=== PATIENT | male | born 1955 | race Caucasian/White ===

== ENCOUNTER 2018-05-30 23:14 | Inpatient (IN) | payer OTHER, MEDICARE ==
[~2018-05-30] VITALS: Ht 182.9 cm; Wt 84.4 kg
[2018-05-31] MEDS ORDERED: PREG50CA PO (00:07)
[2018-05-31] MEDS ORDERED: VITA1TAB27 PO (00:07)
[2018-05-31] MEDS ORDERED: BISA10SU8 RC (00:07)
[2018-05-31] MEDS ORDERED: AMYL1CAP58 PO (00:07)
[2018-05-31] MEDS ORDERED: CYCL5TAB PO (00:07)
[2018-05-31] MEDS ORDERED: FENO134C PO (00:07)
[2018-05-31] MEDS ORDERED: GLUC1KIT IJ (00:07)
[2018-05-31] MEDS ORDERED: FOLI1TAB16 PO (00:07)
[2018-05-31] MEDS ORDERED: LORA2VIA6 IV (00:07)
[2018-05-31] MEDS ORDERED: ALPR1TAB7 PO (00:07)
[2018-05-31] MEDS ORDERED: AMLO5TAB2 PO (00:07)
[2018-05-31] MEDS ORDERED: MULT-213 PO (00:07)
[2018-05-31] MEDS ORDERED: TIOT18CA4 IH (00:07)
[2018-05-31] MEDS ORDERED: BUPR1FIL5 SL (00:07)
[2018-05-31] MEDS ORDERED: HYDR2VIA3 IV (00:07)
[2018-05-31] MEDS ORDERED: PANT40VI IV (00:07)
[2018-05-31] MEDS ORDERED: HEPA500014 IJ (00:07)
[2018-05-31] MEDS ORDERED: LEVO150T8 PO (00:07)
[2018-05-31] MEDS ORDERED: OMEG100037 PO (00:07)
[2018-05-31] MEDS ORDERED: FLUT1DIS29 IH (00:07)
[2018-05-31] MEDS ORDERED: INSU100C SQ ×2 (00:07)
[2018-05-31] MEDS ORDERED: THIA100V2 IJ (00:07)
[2018-05-31] MEDS ORDERED: DEXT38GE12 PO (00:07)
[2018-05-31] MEDS ORDERED: CLON1PAT TD (00:07)
[2018-05-31] MEDS ORDERED: ACET325T53 PO (00:07)
[2018-05-31] MEDS ORDERED: LIOTHYRONINE PO (00:07)
[2018-05-31] MEDS ORDERED: LIDO30AD10 TD (00:07)
[2018-05-31] MEDS ORDERED: DIVA250T4 PO (00:07)
[2018-05-31] MEDS ORDERED: ONDA8TAB9 PO (00:07)
[2018-05-31] MEDS ORDERED: LABE25SY IV (00:07)
[2018-05-31] MEDS ORDERED: TEMA30CA5 PO (00:07)
[2018-05-31] MEDS ORDERED: BUPR200T2 PO (00:07)
[2018-05-31] MEDS ORDERED: ALLO100T PO (00:07)
[2018-05-31] MEDS ORDERED: LEVE500T9 PO (00:07)
[2018-05-31] MEDS ORDERED: HYDR-4209 PO (00:07)
[2018-05-31] MEDS ORDERED: DIGO125T PO (00:07)
[2018-05-31] MEDS ORDERED: ALBU8.5H8 IH (00:07)
[2018-05-31] MEDS ORDERED: HALO5AMP2 IJ (00:07)
[2018-05-31] MEDS ORDERED: DESV100T PO (00:07)
[2018-05-31] MEDS ORDERED: FLUD0.1T PO (00:07)
[2018-05-31] MEDS ORDERED: AMOX-427 PO (00:07)
[2018-05-31] MEDS ORDERED: HYDR20VI4 IV (00:07)
[2018-05-31 00:37] LABS: *BILIRUBIN,URIN NEGATIVE (NEGATIVE); *BLOOD, URINE NEGATIVE (NEGATIVE); *CLARITY,URINE CLEAR (CLEAR); *COLOR,URINE YELLOW (YELLOW); *KETONES,URINE NEGATIVE (NEGATIVE); *PROTEIN,URINE NEGATIVE (NEGATIVE); *UROBILINOGEN,URINE 0.2 E.U./dl (NORMAL); LEUKOCYTE ESTERASE ,URINE NEGATIVE (NEGATIVE); NITRITE, URINE NEGATIVE (NEGATIVE); PH,URINE 6.5 (5.0-8.0); UGLUCOSE NEGATIVE (NEGATIVE)
[2018-05-31 00:52] LABS: BACTERIA,URINE NONE SEEN /HPF (NONE SEEN); RBC,URINE 0-3 /HPF (0-3); SQUAMOUS EPITHELIAL CELL,UR FEW /HPF (NONE SEEN); WBC,URINE 0-3 /HPF (0-3)
--- NOTE | 2018-05-31 01:33 | NUR ---
APt. admitted to [facility] , under care of Dr. Carvalho/Dexter Mc. Belongs List completed. MRSA swab done. Report given to Wendi LUI.
[2018-05-31] MEDS ORDERED: LORAZEPAM 2 MG/1 ML VIAL ONE (01:56)
[2018-05-31] MEDS ORDERED: LORAZEPAM 2 MG/1 ML VIAL IM ONE (02:00)
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
[2018-05-31 02:46] VITALS: BP 142/87
[2018-05-31] MEDS ORDERED: MAGNESIUM HYDROXIDE 30 ML LIQUID UDC PO PRN (03:30)
[2018-05-31] MEDS ORDERED: ACETAMINOPHEN 325 MG TABLET PO PRN (03:30)
[2018-05-31] MEDS ORDERED: MAG HYDROX/AL HYDROX/SIMETH 30 ML LIQUID UDC PO PRN (03:30)
[2018-05-31 07:30] VITALS: BP 130/80
[2018-05-31] MEDS: NICOTINE 14 MG/24HR PATCH TD SCH (09:44)
[2018-05-31] MEDS: LORAZEPAM 1 MG TABLET PO PRN ×3 (09:49→21:40)
[2018-05-31] MEDS: LEVETIRACETAM 500 MG TABLET PO SCH ×2 (11:30→20:02)
[2018-05-31] MEDS ORDERED: ALBUTEROL SULFATE 8 GM HFA.AER.AD IH PRN (11:30)
[2018-05-31] MEDS ORDERED: BISACODYL 10 MG SUPP.RECT RC PRN (11:30)
[2018-05-31] MEDS ORDERED: Medication Not On Formulary EA (Cyclobenzaprine Hcl 10 MG) PO PRN (11:30)
[2018-05-31] MEDS ORDERED: ONDANSETRON 8 MG PO PRN (11:30)
[2018-05-31] MEDS ORDERED: LIDOCAINE 5% PATCH TD SCH (11:30)
[2018-05-31] MEDS: AMLODIPINE 5 MG TABLET PO SCH ×2 (11:30→13:10)
[2018-05-31] MEDS: LEVOTHYROXINE SODIUM 150 MCG TABLET PO SCH (11:30)
[2018-05-31] MEDS ORDERED: ALBUTEROL SULFATE 2.5 MG/3 ML NEBU NEB PRN (12:00)
[2018-05-31] MEDS ORDERED: ONDANSETRON ODT 4 MG TAB.RAPDIS SL PRN (12:15)
[2018-05-31] MEDS ORDERED: CYCLOBENZAPRINE HCL 10 MG TABLET PO PRN ×2 (12:15→13:00)
[2018-05-31] MEDS: HYDROCODONE/APAP 5-325MG TABLET PO PRN ×2 (12:53→20:03)
[2018-05-31] MEDS: ALLOPURINOL 100 MG TABLET PO SCH (13:09)
[2018-05-31] MEDS: FLUDROCORTISONE ACETATE 0.1 MG TABLET PO SCH (13:09)
[2018-05-31] MEDS ORDERED: CLONIDINE HCL 0.1 MG TABLET PO PRN (13:45)
[2018-05-31] MEDS ORDERED: FLUTICASONE/SALMETEROL 500/50 EACH DISK.W.DEV IH SCH (17:00)
[2018-05-31] MEDS ORDERED: Medication Not On Formulary EA (Omega-3/Dha/Epa/Fish Oil (Fish Oil 1,000 mg Softgel) 1,0 PO SCH (17:00)
[2018-05-31] MEDS ORDERED: Medication Not On Formulary EA (Amylase/Lipase/Protease (Creon Dr 24,000 Units Capsule) PO SCH (17:00)
[2018-05-31] MEDS: AMOXICILLIN-CLAVUL 500-125MG TABLET PO SCH (17:40)
[2018-05-31] MEDS: LIPASE/PROTEASE/AMYLASE 4200 UNITS CAPSULE.DR PO SCH (17:41)
[2018-05-31] MEDS: PREGABALIN 50 MG CAPSULE PO SCH (17:41)
[2018-05-31] MEDS: OMEGA-3 FATTY ACIDS/FISH OIL CAPSULE PO SCH (20:02)
[2018-05-31 20:22] VITALS: BP 117/60
[2018-05-31] MEDS: BACITRACIN/POLYMYXIN B OINT 15 GM TUBE TOP SCH (21:11)
[2018-05-31] MEDS ORDERED: TRAZODONE 50 MG TABLET PO SCH (21:45)
--- NOTE | 2018-05-31 22:00 | NUR ---
received to care, watching tv by self, but pleasant upon approach. PRN ativan was given at 2139, for anxiety. as of 2199, he remains awake, in bed. will continue to monitor closely.
--- NOTE | 2018-05-31 23:00 | NUR ---
trazadone started, and was given at this time, per MD orders.
--- NOTE | 2018-05-31 23:30 | NUR ---
appears to be asleep. no distress noted.
[2018-06-01] MEDS: PANTOPRAZOLE SODIUM 40 MG TABLET.DR PO SCH (06:18)
[2018-06-01] MEDS: LEVOTHYROXINE SODIUM 150 MCG TABLET PO SCH (06:18)
[2018-06-01] MEDS: LORAZEPAM 1 MG TABLET PO PRN ×2 (06:24→12:41)
--- NOTE | 2018-06-01 06:24 | NUR ---
pt is now awake. PRN ativan was given at this time, for anxiety. he also had a medication scheduled for this morning at 0700, CYTOMEL, but it was not available, even from the nursing word processing supervisor, so it will be passed on to the oncoming shift, to follow up.
[2018-06-01 07:13] LABS: BASOPHILS % (AUTO) 0.5 % (0.0-2.0); EOSINOPHILS # (AUTO) 0.9 K/uL (0.0-0.7); HEMATOCRIT 33.8 % (36.7-47.1); HEMOGLOBIN 11.4 g/dL (12.5-16.3); LYMPHOCYTES # (AUTO) 1.7 K/uL (20.0-40.0); MEAN CORPUSCULAR HGB CONC 34 g/dL (32.5-36.3); MEAN CORPUSCULAR VOLUME 94.9 fL (73.0-96.2); MONOCYTES # (AUTO) 0.6 K/uL (2.0-10.0); MONOCYTES % (AUTO) 7.5 % (0.0-11.0); NEUTROPHILS # (AUTO) 5.2 K/uL (1.8-8.9); PLATELET COUNT (AUTO) 153 K/uL (152-348); RED BLOOD CELL COUNT(AUTO) 3.56 MIL/uL (4.06-5.63); WHITE BLOOD COUNT (AUTO) 8.5 K/uL (3.6-10.2)
[2018-06-01 07:30] VITALS: BP 159/97
[2018-06-01 07:35] LABS: BILIRUBIN,TOTAL 0.2 mg/dL (0.2-1.0); CREATININE 1.7 mg/dL (0.6-1.3); MAGNESIUM 1.9 mg/dL (1.8-2.4); PHOSPHOROUS 3.4 mg/dL (2.5-4.9); TOTAL PROTEIN, SERUM 6.1 g/dL (6.4-8.2)
[2018-06-01 07:42] LABS: THYROID STIMULATING HORMONE 2.667 mIU/mL (0.358-3.740)
[2018-06-01] MEDS ORDERED: LIOTHYRONINE PO SCH (09:00)
[2018-06-01] MEDS ORDERED: Medication Not On Formulary EA (Fenofibrate,Micronized (Fenofibrate) 134 MG) PO SCH (09:00)
[2018-06-01] MEDS ORDERED: FOLIC ACID 1 MG TABLET PO SCH (09:00)
[2018-06-01] MEDS ORDERED: Medication Not On Formulary EA (Multivitamins W-Minerals (Multivitamin With Minerals) 1 PO SCH (09:00)
[2018-06-01] MEDS: FOLIC ACID 1 MG TABLET PO SCH (09:05)
[2018-06-01] MEDS: ALLOPURINOL 100 MG TABLET PO SCH (09:05)
[2018-06-01] MEDS: FENOFIBRATE NANOCRYSTALLIZED 145 MG TABLET PO SCH (09:05)
[2018-06-01] MEDS: LEVETIRACETAM 500 MG TABLET PO SCH ×2 (09:05→20:09)
[2018-06-01] MEDS: PREGABALIN 50 MG CAPSULE PO SCH ×2 (09:05→17:23)
[2018-06-01] MEDS: MULTIVIT, IRON, MIN NO. 8, FA TABLET PO SCH (09:05)
[2018-06-01] MEDS: DIGOXIN 125 MCG TABLET PO SCH (09:06)
[2018-06-01] MEDS: AMLODIPINE 5 MG TABLET PO SCH (09:07)
[2018-06-01] MEDS: NICOTINE 14 MG/24HR PATCH TD SCH (09:08)
[2018-06-01] MEDS: OMEGA-3 FATTY ACIDS/FISH OIL CAPSULE PO SCH ×2 (09:08→20:09)
[2018-06-01] MEDS: THIAMINE HCL 100 MG TABLET PO SCH (09:08)
[2018-06-01] MEDS: VITAMIN B COMPLEX 1 TABLET PO SCH (09:09)
[2018-06-01] MEDS: FLUDROCORTISONE ACETATE 0.1 MG TABLET PO SCH (09:09)
[2018-06-01] MEDS: AMOXICILLIN-CLAVUL 500-125MG TABLET PO SCH ×2 (09:09→17:23)
[2018-06-01] MEDS: BACITRACIN/POLYMYXIN B OINT 15 GM TUBE TOP SCH ×2 (09:09→20:25)
[2018-06-01] MEDS: LIPASE/PROTEASE/AMYLASE 4200 UNITS CAPSULE.DR PO SCH ×2 (09:09→17:23)
[2018-06-01] MEDS: LIOTHYRONINE SODIUM 25 MCG TABLET PO SCH (10:57)
[2018-06-01] MEDS: FLUTICASONE/VILANTEROL 1 EACH BLST.W.DEV INH SCH (10:57)
--- NOTE | 2018-06-01 11:53 | NUR ---
Pt resides at home with his Cadence[[address] [place] [address]]. Per pt, he would like to return home upon discharge. Pt consented for BEHZAD to speak to , Cadence Friend([phone]). BEHZAD will speak with pt and MD regarding appropriate discharge plans. BEHZAD will form a safe and proper discharge plan. Addendum: 06/01/18 at 1404 by MOJGAN WEN Initial Discharge Instructions
[2018-06-01 16:50] VITALS: BP 126/70
[2018-06-01] MEDS: TRAZODONE 100 MG TABLET PO SCH (20:09)
[2018-06-01] MEDS: HYDROCODONE/APAP 5-325MG TABLET PO PRN (20:10)
[2018-06-01] MEDS: METHADONE HCL 10 MG TABLET PO SCH (21:43)
--- NOTE | 2018-06-01 22:00 | NUR ---
received to care, lying in bed, pleasant upon approach. denies si, or desire to harm self. compliant with medications and staff direction. PRN norco was given at 2009, for lower abdominal pain, which was much better, by 2099. was seen by Dr Champion (pain management), who started him on methadone, and first dose was given, this evening. as of 2200, he appears to be asleep. no distress noted. will continue to monitor closely.
[2018-06-02] MEDS: TEMAZEPAM 7.5 MG CAPSULE PO PRN ×2 (01:25→22:34)
--- NOTE | 2018-06-02 01:25 | NUR ---
pt is now awake. PRN restoril was given for insomnia, at his request. currently in bed, eating a snack. no distress noted. will continue to monitor closely.
--- NOTE | 2018-06-02 02:00 | NUR ---
appears to be asleep. no distress noted
[2018-06-02] MEDS: PANTOPRAZOLE SODIUM 40 MG TABLET.DR PO SCH (06:32)
[2018-06-02] MEDS: LEVOTHYROXINE SODIUM 150 MCG TABLET PO SCH (06:32)
[2018-06-02] MEDS: LIOTHYRONINE SODIUM 25 MCG TABLET PO SCH (06:32)
[2018-06-02] MEDS: LORAZEPAM 1 MG TABLET PO PRN ×2 (06:39→14:18)
--- NOTE | 2018-06-02 06:39 | NUR ---
PRN ativan given for anxiety
--- NOTE | 2018-06-02 06:59 | NUR ---
slept 7.5 hours.
[2018-06-02 07:30] VITALS: BP 137/81
[2018-06-02] MEDS: LIPASE/PROTEASE/AMYLASE 4200 UNITS CAPSULE.DR PO SCH ×2 (08:33→17:00)
[2018-06-02] MEDS: MULTIVIT, IRON, MIN NO. 8, FA TABLET PO SCH (08:34)
[2018-06-02] MEDS: PREGABALIN 50 MG CAPSULE PO SCH ×2 (08:34→16:59)
[2018-06-02] MEDS: FOLIC ACID 1 MG TABLET PO SCH (08:34)
[2018-06-02] MEDS: METHADONE HCL 10 MG TABLET PO SCH ×2 (08:35→16:58)
[2018-06-02] MEDS: LEVETIRACETAM 500 MG TABLET PO SCH ×2 (08:35→20:43)
[2018-06-02] MEDS: DIGOXIN 125 MCG TABLET PO SCH (08:36)
[2018-06-02] MEDS: ALLOPURINOL 100 MG TABLET PO SCH (08:37)
[2018-06-02] MEDS: AMLODIPINE 5 MG TABLET PO SCH (08:37)
[2018-06-02] MEDS: FENOFIBRATE NANOCRYSTALLIZED 145 MG TABLET PO SCH (08:37)
[2018-06-02] MEDS: AMOXICILLIN-CLAVUL 500-125MG TABLET PO SCH ×2 (08:39→17:00)
[2018-06-02] MEDS: THIAMINE HCL 100 MG TABLET PO SCH (08:40)
[2018-06-02] MEDS: VITAMIN B COMPLEX 1 TABLET PO SCH (08:41)
[2018-06-02] MEDS: FLUDROCORTISONE ACETATE 0.1 MG TABLET PO SCH (08:41)
[2018-06-02] MEDS: OMEGA-3 FATTY ACIDS/FISH OIL CAPSULE PO SCH ×2 (08:41→20:43)
[2018-06-02] MEDS: BACITRACIN/POLYMYXIN B OINT 15 GM TUBE TOP SCH ×2 (08:42→20:52)
[2018-06-02] MEDS: NICOTINE 14 MG/24HR PATCH TD SCH (08:42)
[2018-06-02] MEDS: FLUTICASONE/VILANTEROL 1 EACH BLST.W.DEV INH SCH (08:50)
[2018-06-02 14:47] LABS: *BILIRUBIN,URIN NEGATIVE (NEGATIVE); *BLOOD, URINE NEGATIVE (NEGATIVE); *CLARITY,URINE CLEAR (CLEAR); *KETONES,URINE NEGATIVE (NEGATIVE); *PROTEIN,URINE NEGATIVE (NEGATIVE); *UROBILINOGEN,URINE 0.2 E.U./dl (NORMAL); LEUKOCYTE ESTERASE ,URINE NEGATIVE (NEGATIVE); NITRITE, URINE NEGATIVE (NEGATIVE); UGLUCOSE NEGATIVE (NEGATIVE)
[2018-06-02 14:48] LABS: *COLOR,URINE BRIGHT YELLOW (YELLOW)
[2018-06-02 14:53] LABS: BACTERIA,URINE NONE SEEN /HPF (NONE SEEN); RBC,URINE 0-3 /HPF (0-3); SQUAMOUS EPITHELIAL CELL,UR FEW /HPF (NONE SEEN); WBC,URINE 0-3 /HPF (0-3)
[2018-06-02 14:58] LABS: *CREATININE,URINE 101.1 mg/dL (30-125)
[2018-06-02 15:27] VITALS: BP 109/71
[2018-06-02] MEDS: FLUTICASONE PROP NASAL SPRAY 16 GM BOTTLE NS SCH (16:57)
[2018-06-02] MEDS: LORATADINE 10 MG TABLET PO SCH (16:59)
[2018-06-02 20:00] VITALS: BP 130/75
--- NOTE | 2018-06-02 20:00 | NUR ---
Pt witnessed to sign Voluntary status with Dr Carvalho.
[2018-06-02] MEDS: TRAZODONE 100 MG TABLET PO SCH (20:43)
--- NOTE | 2018-06-02 22:00 | NUR ---
received to care, lying in bed, isolative, but pleasant upon approach. denies si, or desire to harm self. compliant with medications and staff direction. as of 0, he remains awake, watching tv. no distress noted. will continue to monitor closely.
--- NOTE | 2018-06-02 22:34 | NUR ---
remains awake,watching tv. PRN restoril was given for insomnia. no distress noted. will continue to monitor closely.
--- NOTE | 2018-06-02 23:30 | NUR ---
appears to be asleep. no distress noted.
[2018-06-03] MEDS: LIOTHYRONINE SODIUM 25 MCG TABLET PO SCH (06:36)
[2018-06-03] MEDS: PANTOPRAZOLE SODIUM 40 MG TABLET.DR PO SCH (06:37)
[2018-06-03] MEDS: LEVOTHYROXINE SODIUM 150 MCG TABLET PO SCH (06:37)
[2018-06-03 06:56] LABS: BASOPHILS % (AUTO) 0.6 % (0.0-2.0); EOSINOPHILS # (AUTO) 0.8 K/uL (0.0-0.7); EOSINOPHILS % (AUTO) 11.2 % (0.0-7.0); HEMATOCRIT 31.9 % (36.7-47.1); LYMPHOCYTES # (AUTO) 1.8 K/uL (20.0-40.0); LYMPHOCYTES % (AUTO) 24.6 % (20.5-51.5); MEAN CORPUSCULAR HEMOGLOBIN 32.6 uug (23.8-33.4); MEAN CORPUSCULAR HGB CONC 35 g/dL (32.5-36.3); MEAN CORPUSCULAR VOLUME 94.3 fL (73.0-96.2); MONOCYTES # (AUTO) 0.7 K/uL (2.0-10.0); MONOCYTES % (AUTO) 8.9 % (0.0-11.0); NEUTROPHILS # (AUTO) 4.1 K/uL (1.8-8.9); NEUTROPHILS % (AUTO) 54.7 % (38.5-71.5); PLATELET COUNT (AUTO) 166 K/uL (152-348); RED BLOOD CELL COUNT(AUTO) 3.38 MIL/uL (4.06-5.63); WHITE BLOOD COUNT (AUTO) 7.5 K/uL (3.6-10.2)
--- NOTE | 2018-06-03 06:56 | NUR ---
slept 5.5 hours.
[2018-06-03 07:17] LABS: BILIRUBIN,TOTAL 0.2 mg/dL (0.2-1.0); CREATININE 2.3 mg/dL (0.6-1.3); MAGNESIUM 1.9 mg/dL (1.8-2.4); PHOSPHOROUS 3.6 mg/dL (2.5-4.9); POTASSIUM 4.7 mmol/L (3.5-5.1); TOTAL PROTEIN, SERUM 6.3 g/dL (6.4-8.2)
[2018-06-03 07:30] VITALS: BP 123/79
[2018-06-03] MEDS: FENOFIBRATE NANOCRYSTALLIZED 145 MG TABLET PO SCH (08:23)
[2018-06-03] MEDS: FOLIC ACID 1 MG TABLET PO SCH (08:23)
[2018-06-03] MEDS: PREGABALIN 50 MG CAPSULE PO SCH (08:23)
[2018-06-03] MEDS: OMEGA-3 FATTY ACIDS/FISH OIL CAPSULE PO SCH (08:24)
[2018-06-03] MEDS: LORATADINE 10 MG TABLET PO SCH (08:24)
[2018-06-03] MEDS: MULTIVIT, IRON, MIN NO. 8, FA TABLET PO SCH (08:24)
[2018-06-03] MEDS: LEVETIRACETAM 500 MG TABLET PO SCH (08:24)
[2018-06-03] MEDS: THIAMINE HCL 100 MG TABLET PO SCH (08:24)
[2018-06-03] MEDS: METHADONE HCL 10 MG TABLET PO SCH (08:24)
[2018-06-03 08:25] VITALS: BP 123/79
[2018-06-03] MEDS: DIGOXIN 125 MCG TABLET PO SCH (08:25)
[2018-06-03] MEDS: AMOXICILLIN-CLAVUL 500-125MG TABLET PO SCH (08:25)
[2018-06-03] MEDS: LIPASE/PROTEASE/AMYLASE 4200 UNITS CAPSULE.DR PO SCH (08:25)
[2018-06-03] MEDS: AMLODIPINE 5 MG TABLET PO SCH (08:25)
[2018-06-03] MEDS: FLUTICASONE/VILANTEROL 1 EACH BLST.W.DEV INH SCH (08:26)
[2018-06-03] MEDS: VITAMIN B COMPLEX 1 TABLET PO SCH (08:26)
[2018-06-03] MEDS: FLUDROCORTISONE ACETATE 0.1 MG TABLET PO SCH (08:26)
[2018-06-03] MEDS: ALLOPURINOL 100 MG TABLET PO SCH (08:26)
[2018-06-03] MEDS: FLUTICASONE PROP NASAL SPRAY 16 GM BOTTLE NS SCH (08:26)
[2018-06-03] MEDS: NICOTINE 14 MG/24HR PATCH TD SCH (08:27)
[2018-06-03] MEDS: BACITRACIN/POLYMYXIN B OINT 15 GM TUBE TOP SCH (09:14)
--- NOTE | 2018-06-03 09:25 | NUR ---
GPS/RN- patient schedule for discharge home, confirmed orders with Dr Carvalho, patient will be discharged home via taxi, Per MD continue with discharge. Patient doesn't drive very much unable to pick him up.
--- NOTE | 2018-06-03 11:09 | NUR ---
GPS/RN- labs ordered by Dr Arriola, advised of patient discharge, cleared for discharge patient to follow up with Nephrology, his own.
--- NOTE | 2018-06-03 11:30 | NUR ---
GPS: Nursing Notes: Discharge Notes: Patient is awake and responding to his name, cooperative with nursing care, compliant with his medications, following staff directions, ambulatory, self care, A/Ox4, denies any SI/HI, denies any AH/VH, denies any Pain or discomfort, denies any SOB, discharge home with his Cadence Friend at [address], [place], [place] [id number] , instructions and prescriptions given to patient, patient to follow up with his own PCP for aftercare as son as possible - Dr. Iglesia Whittaker [[address], [place] [address]], Also, patient will follow up with his film developer - Dr. Charles Falcon, [facility] [[address] [facility], [place] [address]]. Given a list of psychiatrists for referral, patient stated that he will follow up with his own PCP for referral, transported via [employer] to his home, took all his belongings with him, escorted to vehicle via w/c.
[2018-06-05] MEDS ORDERED: CLONIDINE-TTS 1 PATCH TD SCH (08:00)
--- NOTE | 2018-06-05 11:37 | NUR ---
Discharge Note: Patient was discharged back home on 06/03/18 with his [[address], [place] [address]; [phone]]. BEHZAD placed follow-up call to patient to offer resources. Spoke with pt over phone, and pt was agreeable to resources for substance abuse. Patient was referred to: [place] [id number] [facility] [address] [place], [place] [id number] [facility] [address] [place] [address] Substance Abuse and Mental Health Services Administration ([facility]) National Helpline 9-240-274-HELP (1852) For smoking cessation, patient was referred to [employer] 800-LUNGUSA and [employer] 863-137-9059. Patient was also provided with mental health resources to: [address] [place] [address] Lorelei [facility] National Suicide Prevention Life Line BEHZAD mailed resource packet to the patient.
[2018-06-05 13:07] LABS: A/G RATIO 1.2 (0.7-1.7); ALBUMIN 3.1 g/dL (2.9-4.4); ALPHA-1-GLOBULIN 0.2 g/dL (0.0-0.4); ALPHA-2-GLOBULIN 0.7 g/dL (0.4-1.0); BETA GLOBULIN 0.9 g/dL (0.7-1.3); GAMMA GLOBULIN 0.7 g/dL (0.4-1.8); GLOBULIN, TOTAL 2.5 g/dL (2.2-3.9); M-SPIKE Not Observed g/dL (Not Observed)
== END 2018-06-03 11:30 | disposition home or self-care (01) | DRG 881 ==
LOC: ER 23:18 → GPSOV 05-31 01:37 → GPS 05-31 01:42
PROVIDERS: ADMIT Psychiatry & Neurology Psychiatry; ATTEND Internal Medicine
DX: F32.9 Major depressive disorder, single episode, unspecified (principal); F04 Amnestic disorder due to known physiological condition; N18.3 Chronic kidney disease, stage 3 (moderate); N17.9 Acute kidney failure, unspecified; K86.0 Alcohol-induced chronic pancreatitis; F10.288 Alcohol dependence with other alcohol-induced disorder; E44.0 Moderate protein-calorie malnutrition; S61.512D Laceration without foreign body of left wrist, subsequent encounter; X78.1XXD Intentional self-harm by knife, subsequent encounter; G89.4 Chronic pain syndrome; J47.9 Bronchiectasis, uncomplicated; F17.210 Nicotine dependence, cigarettes, uncomplicated; Y90.9 Presence of alcohol in blood, level not specified; E11.22 Type 2 diabetes mellitus with diabetic chronic kidney disease; I12.9 Hypertensive chronic kidney disease with stage 1 through stage 4 chronic kidney disease, or unspecified chronic kidney disease; F43.10 Post-traumatic stress disorder, unspecified; K21.9 Gastro-esophageal reflux disease without esophagitis; Z79.4 Long term (current) use of insulin; Z79.899 Other long term (current) drug therapy; Z79.891 Long term (current) use of opiate analgesic; J44.9 Chronic obstructive pulmonary disease, unspecified; M10.9 Gout, unspecified; J30.9 Allergic rhinitis, unspecified; E78.5 Hyperlipidemia, unspecified; D63.1 Anemia in chronic kidney disease; E03.9 Hypothyroidism, unspecified; Z87.81 Personal history of (healed) traumatic fracture
CPT/HCPCS: 36415; 71045; 83735; 83970; 84100; 84155; 84156; 84165; 84300; 84443; 85025; 87086; A4663; J2060; J3535; J8499